=== PATIENT | male | born 1950 | race Caucasian/White ===

== ENCOUNTER → 2016-11-18 | Outpatient (CLI) | payer OTHER, MEDICARE ==
[2016-11-18 08:43] LABS: CHLORIDE,CL 104 mmol/L (98-110); SODIUM,NA 137 mmol/L (136-146)
== END ==
LOC: MW.CHIM 08:01
PROVIDERS: ATTEND Internal Medicine
DX: I10 Essential (primary) hypertension (principal); E11.9 Type 2 diabetes mellitus without complications
CPT/HCPCS: 36415; 80053; 80061; 83036; 85025

== ENCOUNTER 2016-12-13 11:54 | Emergency (ER) | payer OTHER, MEDICARE ==
--- NOTE | 2016-12-13 12:12 | EDM.PDOC ---
ED HPI Trauma - General Chief Complaint: Upper Extremity Injury/Pain Stated Complaint: LEFT HAND Time Seen by Provider: 12/13/16 12:06 - History of Present Illness INITIAL COMMENTS - FREE TEXT/NARRATIVE: HISTORY AND PHYSICAL: History of present illness: Patient is a 66-year-old male presents status post fall with an acute injury to his left hand and wrist sustaining multiple abrasions and is the main concern about tenderness and swelling over the distal aspect of his left radius Review of systems: As per history of present illness and below otherwise all systems reviewed and negative. Past medical history: As per history of present illness and as reviewed below otherwise noncontributory. Surgical history: As per history of present illness and as reviewed below otherwise noncontributory. Social history: No reported history of drug or alcohol abuse. Family history: As per history of present illness and as reviewed below otherwise noncontributory. Physical exam: HEENT: Atraumatic, normocephalic, pupils reactive, negative for conjunctival pallor or scleral icterus, mucous membranes moist, throat clear, neck supple, nontender, trachea midline. Lungs: Clear to auscultation, breath sounds equal bilaterally, chest nontender. Heart: S1S2, regular, negative for clicks, rubs, or JVD. Abdomen: Soft, nondistended, nontender. Negative for masses or hepatosplenomegaly. Negative for costovertebral tenderness. Pelvis: Stable nontender. Genitourinary: Deferred. Rectal: Deferred. Extremities: Patient has tenderness pain and swelling over the distal radius on the dorsal aspect has multiple abrasions with avulsion of his left hand neurovascular exam is unremarkable patient has approximately 1.5 cm moderate laceration volar aspect of the second digit of the left hand Neuro: Awake, alert, oriented. Cranial nerves II through XII unremarkable. Cerebellum unremarkable. Motor and sensory unremarkable throughout. Exam nonfocal. Diagnostics: X-ray left hand/wrist Therapeutics: Patient was anesthetized prepped and draped in sterile manner laceration second digit were aspect proximally 2 cm closed with 4-0 nylon interrupted suture Impression: #1 acute left hand/wrist injury with laceration Definitive disposition and diagnosis as appropriate pending reevaluation and review of above. Allergies/ADRs: Allergies weed pollen Allergy (Verified 12/13/16 12:18) Difficulty Breathing CATS Allergy (Uncoded 12/13/16 12:18) Cannot Remember KETCHUP Allergy (Uncoded 12/13/16 12:18) Cannot Remember Home Medications: Ambulatory Orders Albuterol [Ventolin HFA] 1 puff INH Q4HR 01/17/14 [Confirmed 09/15/15] Glimepiride 4 mg PO BID 01/17/14 [Confirmed 09/15/15] Insulin Glarg,Human.Rec.Analog [Lantus] 20 units SUBCUT DAILY 01/17/14 [ Confirmed 09/15/15] Valsartan [Diovan] 320 mg PO DAILY 01/17/14 [Confirmed 09/15/15] metFORMIN [Glucophage] 1,000 mg PO BID 01/17/14 [Confirmed 09/15/15] Fluticasone/Salmeterol [Advair Diskus 250-50] 1 inh INH BID 09/15/15 [Confirmed 09/15/15] Ipratropium/Albuterol Sulfate [Iprat-Albut 0.5-3(2.5) MG/3 ML] 3 ml INH Q6HR PRN 09/15/15 [Confirmed 09/15/15] amLODIPine [Norvasc] 1 tab PO DAILY 09/15/15 [Confirmed 09/15/15] Past Medical History HEENT History: Reports: None Cardiovascular History: Reports: Hypertension Respiratory History: Reports: Asthma, Bronchitis, recurrent, COPD, Pneumonia, recurrent Endocrine/Metabolic History: Reports: Diabetes, type II - Infectious Disease History Infectious Disease History: Reports: Chicken pox - Past Surgical History Head Surgeries/Procedures: Reports: None Social & Family History - Family History HEENT: Reports: None Cardiac: Reports: None - Tobacco Use Smoking Status *Q: Former Smoker - Alcohol Use Days Per Week of Alcohol Use: 0 Number of Drinks Per Day: 0 Total Drinks Per Week: 0 - Recreational Drug Use Recreational Drug Use: No Drug Use in Last 12 Months: No Review of Systems - Review of Systems Review Of Systems: ROS reveals no pertinent complaints other than HPI. Trauma Exam - Physical Exam Exam: See Below (See dictation) Course - Vital Signs Last Recorded V/S: Last Vital Signs Temp 36.5 C 12/13/16 12:18 Pulse 88 12/13/16 12:18 Resp 18 12/13/16 12:18 BP 148/80 H 03/31/17 12:18 Pulse Ox 93 L 12/13/16 12:18 - Orders/Labs/Meds Orders: Active Orders 24 hr Category Date Time Status Hand 2V Lt [CR] Stat Exams 12/13/16 12:08 Taken Wrist 2V Lt [CR] Stat Exams 12/13/16 12:08 Taken Meds: Medications Discontinued Medications Generic Name Dose Route Start Last Admin Trade Name Mehrdad PRN Reason Stop Dose Admin Lidocaine HCl 20 ml 12/13/16 12:13 Xylocaine 1% INJECT 12/13/16 12:14 ONETIME ONE Departure - Departure Time of Disposition: 12:59 Disposition: Home, Self-Care 01 Condition: good Clinical Impression: Hand injury, Laceration, Wrist injury Forms: ED Department Discharge Additional Instructions: The following information is given to patients seen in the emergency department who are being discharged to home. This information is to outline your options for follow-up care. We provide all patients seen in our emergency department with a follow-up referral. The need for follow-up, as well as the timing and circumstances, are variable depending upon the specifics of your emergency department visit. If you don't have a primary care physician on staff, we will provide you with a referral. We always advise you to contact your personal physician following an emergency department visit to inform them of the circumstance of the visit and for follow-up with them and/or the need for any referrals to a consulting specialist. The emergency department will also refer you to a specialist when appropriate. This referral assures that you have the opportunity for followup care with a specialist. All of these measure are taken in an effort to provide you with optimal care, which includes your followup. Under all circumstances we always encourage you to contact your private physician who remains a resource for coordinating your care. When calling for followup care, please make the office aware that this follow-up is from your recent emergency room visit. If for any reason you are refused follow-up, please contact the [facility] emergency department at and asked to speak to the emergency department charge nurse. Follow up primary medical doctor one to 2 days wound check in 48 hours suture removal 10-14 days return as needed as discussed - My Orders Last 24 Hours: My Active Orders 12/13/16 12:08 Hand 2V Lt [CR] Stat Wrist 2V Lt [CR] Stat - Assessment/Plan Last 24 Hours: My Active Orders 12/13/16 12:08 Hand 2V Lt [CR] Stat Wrist 2V Lt [CR] Stat
[2016-12-13] MEDS ORDERED: Lidocaine 1% 20 ML MDV INJECT ONE (12:13)
--- NOTE | 2016-12-13 13:02 | CR ---
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 Subchondral cystic changes noted within several carpal bones. Mo derate osteophytic changes are noted at diffuse CMC joint. Periarticular calcific densities are also noted. No fracture or acute osseous abnormality is present. Mild osteophytic changes are also noted within the interphalangeal joints. Bone mineralization otherwise appears normal. IMPRESSION: 1. Advanced arthritic changes noted within the wrist and first CMC joint. 2. Mild osteophytic changes noted within the interphalangeal joints. 3. No acute osseous abdomen identified.
[2016-12-13] MEDS ORDERED: Diphtheria/Tetanus Toxoids,Adult (Td) 0.5 ML Syringe IM ONE (13:11)
[2016-12-13] MEDS ORDERED: Bacitracin Oint 1 GM U/D Packet TOP ONE (13:12)
[2016-12-13 13:24] VITALS: BP 146/78
== END 2016-12-13 13:22 | disposition home or self-care (01) ==
LOC: MW.ED 11:54
DX: S61.211A Laceration without foreign body of left index finger without damage to nail, initial encounter (principal); S69.92XA Unspecified injury of left wrist, hand and finger(s), initial encounter; I10 Essential (primary) hypertension; J45.909 Unspecified asthma, uncomplicated; J44.9 Chronic obstructive pulmonary disease, unspecified; Z87.891 Personal history of nicotine dependence; Z79.4 Long term (current) use of insulin; Z79.899 Other long term (current) drug therapy; Z91.048 Other nonmedicinal substance allergy status; W19.XXXA Unspecified fall, initial encounter
CPT/HCPCS: 12001; 73100; 73120; 99283; L3908; 99282

== ENCOUNTER 2016-12-18 09:53 | Emergency (ER) | payer OTHER, MEDICARE ==
--- NOTE | 2016-12-18 10:45 | CR ---
EXAMINATION: Left hand and left wrist HISTORY: Pain COMPARISON: 12/13/2016 TECHNIQUE: 2 views of the left hand and 2 views of the left wrist FINDINGS: There is no acute osseous abnormality, dislocation, or fracture identified. Bone mineraliz ation appears grossly normal. Joint space narrowing is noted at the lunocapitate articulation. Cysti c changes noted within the scaphoid. Moderate first CMC osteoarthritic changes are noted. Joint spac e narrowing is noted within multiple interphalangeal joints. Periarticular calcifications are noted adjacent to the wrist. The radiocarpal alignment is preserved. There is moderate soft tissue swellin g overlying the wrist and hand. IMPRESSION: 1. No acute osseous abnormality identified. 2. Advanced degenerative changes noted within the wrist. With the adjacent calcific densities, gout is a consideration. 3. Osteoarthritic changes noted within the interphalangeal joints.
--- NOTE | 2016-12-18 10:54 | EDM.PDOC ---
ED HPI Trauma - General Chief Complaint: Upper Extremity Injury/Pain Stated Complaint: LT HAND SWOLLEN Time Seen by Provider: 12/18/16 10:00 Source: Reports: Patient History Limitations: Reports: No limitations - History of Present Illness INITIAL COMMENTS - FREE TEXT/NARRATIVE: HISTORY AND PHYSICAL: History of present illness: [Patient comes to the emergency room complaining of left wrist and hand pain. He was evaluated here for these complaints on December 13 following a fall. X-rays at that time were negative for fracture. Patient presents today with continued pain, swelling, redness. he requests a repeat x-ray since his symptoms have not improved. No numbness or tingling. Decreased range of motion due to swelling in left hand.] Review of systems: As per history of present illness and below otherwise all systems reviewed and negative. Past medical history: As per history of present illness and as reviewed below otherwise noncontributory. Surgical history: As per history of present illness and as reviewed below otherwise noncontributory. Social history: No reported history of drug or alcohol abuse. Family history: As per history of present illness and as reviewed below otherwise noncontributory. Physical exam: HEENT: Atraumatic, normocephalic. Lungs: Clear to auscultation, breath sounds equal bilaterally. Heart: S1S2, regular, negative for clicks, rubs. Extremities: Left hand and wrist are acutely swollen. Redness and tenderness over left distal radius. Palm of left hand is ecchymotic. Neurovascular unremarkable. Has full range of motion of his fingers. Increased range of motion to his left wrist due to discomfort. Neuro: Awake, alert, oriented. Cranial nerves II through XII unremarkable. Cerebellum unremarkable. Motor and sensory unremarkable throughout. Exam nonfocal. Diagnostics: [Left wrist x-ray, left hand x-ray, CBC, uric acid] Impression: [Left wrist pain] Plan: [CBC and uric acid levels are within normal limits. X-rays continue to show no fractures. does not appear cellulitic in nature. He is prescribed diclofenac 50 mg to take 3 times daily with food. Tylenol every 4-6 hours as needed. Wear a splint. Followup with Dr. Sparks in 48 hours. Instructed patient to call to schedule appointment today. All of his questions are answered and concerns are addressed.] Definitive disposition and diagnosis as appropriate pending reevaluation and review of above. Allergies/ADRs: Allergies weed pollen Allergy (Verified 12/18/16 10:03) Difficulty Breathing CATS Allergy (Uncoded 12/13/16 12:18) Cannot Remember KETCHUP Allergy (Uncoded 12/13/16 12:18) Cannot Remember Home Medications: Ambulatory Orders Albuterol [Ventolin HFA] 1 puff INH Q4HR 01/17/14 [Confirmed 12/18/16] Glimepiride 4 mg PO BID 01/17/14 [Confirmed 12/18/16] Insulin Glarg,Human.Rec.Analog [Lantus] 20 units SUBCUT DAILY 01/17/14 [ Confirmed 12/18/16] Valsartan [Diovan] 320 mg PO DAILY 01/17/14 [Confirmed 12/18/16] metFORMIN [Glucophage] 1,000 mg PO BID 01/17/14 [Confirmed 12/18/16] Fluticasone/Salmeterol [Advair Diskus 250-50] 1 inh INH BID 09/15/15 [Confirmed 12/18/16] Ipratropium/Albuterol Sulfate [Iprat-Albut 0.5-3(2.5) MG/3 ML] 3 ml INH Q6HR PRN 09/15/15 [Confirmed 12/18/16] amLODIPine [Norvasc] 1 tab PO DAILY 09/15/15 [Confirmed 12/18/16] Past Medical History HEENT History: Reports: None Cardiovascular History: Reports: Hypertension Respiratory History: Reports: Asthma, Bronchitis, recurrent, COPD, Pneumonia, recurrent Endocrine/Metabolic History: Reports: Diabetes, type II - Infectious Disease History Infectious Disease History: Reports: Chicken pox, Measles, Mumps - Past Surgical History Head Surgeries/Procedures: Reports: None Social & Family History - Family History Family Medical History: Noncontributory HEENT: Reports: None Cardiac: Reports: None - Tobacco Use Smoking Status *Q: Never Smoker - Caffeine Use Caffeine Use: Reports: None - Alcohol Use Days Per Week of Alcohol Use: 0 Number of Drinks Per Day: 0 Total Drinks Per Week: 0 - Recreational Drug Use Recreational Drug Use: No Drug Use in Last 12 Months: No Review of Systems - Review of Systems Review Of Systems: ROS reveals no pertinent complaints other than HPI. Trauma Exam - Physical Exam Exam: See Below Course - Vital Signs Last Recorded V/S: Last Vital Signs Temp 98.3 F 12/18/16 10:01 Pulse 74 12/18/16 12:06 Resp 16 12/18/16 12:06 BP 132/78 12/18/16 12:06 Pulse Ox 93 L 12/18/16 12:06 - Orders/Labs/Meds Labs: Laboratory Tests 12/18/16 12/18/16 Range/Units 11:00 11:00 WBC 6.84 (4.0-11.0) K/uL RBC 5.20 (4.50-5.90) M/uL Hgb 15.5 (13.0-17.0) g/dL Hct 45.5 (38.0-50.0) % MCV 87.5 (80.0-98.0) fL MCH 29.8 (27.0-32.0) pg MCHC 34.1 (31.0-37.0) g/dL RDW Std Deviation 41.9 (28.0-62.0) fl RDW Coeff of Ever 13 (11.0-15.0) % Plt Count 248 (150-400) K/uL MPV 8.30 (7.40-12.00) fL Neut % (Auto) 63.7 (48.0-80.0) % Lymph % (Auto) 22.1 (16.0-40.0) % [place] % (Auto) 10.8 (0.0-15.0) % Eos % (Auto) 3.1 (0.0-7.0) % Baso % (Auto) 0.3 (0.0-1.5) % Neut # (Auto) 4.4 (1.4-5.7) K/uL Lymph # (Auto) 1.5 (0.6-2.4) K/uL [place] # (Auto) 0.7 (0.0-0.8) K/uL Eos # (Auto) 0.2 (0.0-0.7) K/uL Baso # (Auto) 0.0 (0.0-0.1) K/uL Sodium 136 (136-146) mmol/L Potassium 4.2 (3.5-5.1) mmol/L Chloride 104 (98-110) mmol/L Carbon Dioxide 21 (21-31) mmol/L BUN 21 (6.0-23.0) mg/dL Creatinine 1.0 (0.6-1.5) mg/dL Est Cr Clr Drug Dosing 67.94 mL/min Estimated GFR (MDRD) > 60.0 ml/min Glucose 135 H (60-110) mg/dL Uric Acid 4.3 (2.1-7.4) mg/dL Calcium 9.2 (8.8-10.8) mg/dL Total Bilirubin 0.5 (0.1-1.5) mg/dL AST 16 (5-40) IU/L ALT 17 (8-54) IU/L Alkaline Phosphatase 56 (40-150) Total Protein 7.5 (6.0-8.0) g/dL Albumin 3.7 (3.4-4.8) g/dL Globulin 3.8 H (2.0-3.5) g/dL Albumin/Globulin Ratio 1.0 L (1.3-2.8) Departure - Departure Time of Disposition: 11:55 Disposition: Home, Self-Care 01 Clinical Impression: Wrist pain, left Instructions: Wrist Pain, [id number] Referrals: Brian Sparks DO [Primary Care Provider] - Forms: ED Department Discharge Additional Instructions: The following information is given to patients seen in the emergency department who are being discharged to home. This information is to outline your options for follow-up care. We provide all patients seen in our emergency department with a follow-up referral. The need for follow-up, as well as the timing and circumstances, are variable depending upon the specifics of your emergency department visit. If you don't have a primary care physician on staff, we will provide you with a referral. We always advise you to contact your personal physician following an emergency department visit to inform them of the circumstance of the visit and for follow-up with them and/or the need for any referrals to a consulting specialist. The emergency department will also refer you to a specialist when appropriate. This referral assures that you have the opportunity for follow-up care with a specialist. All of these measure are taken in an effort to provide you with optimal care, which includes your follow-up. Under all circumstances we always encourage you to contact your private physician who remains a resource for coordinating your care. When calling for follow-up care, please make the office aware that this follow-up is from your recent emergency room visit. If for any reason you are refused follow-up, please contact the [facility] emergency department at and asked to speak to the emergency department charge nurse. [facility] [address] [place] [id number] Followup with your primary care provider at the clinic listed above in 48-72 hours. Wear wrist splint. Take diclofenac as prescribed. May take Tylenol every 4-6 hours as needed for pain. Return to ER as needed as discussed.
[2016-12-18 11:48] LABS: CHLORIDE,CL 104 mmol/L (98-110); SODIUM,NA 136 mmol/L (136-146)
[2016-12-18 12:09] VITALS: BP 132/78
== END 2016-12-18 12:08 | disposition home or self-care (01) ==
LOC: MW.ED 09:53
DX: M25.532 Pain in left wrist (principal); I10 Essential (primary) hypertension; J45.909 Unspecified asthma, uncomplicated; J44.9 Chronic obstructive pulmonary disease, unspecified; E11.9 Type 2 diabetes mellitus without complications; Z79.4 Long term (current) use of insulin; Z79.899 Other long term (current) drug therapy; Z91.018 Allergy to other foods; Z91.048 Other nonmedicinal substance allergy status
CPT/HCPCS: 36415; 73100-26-LT; 73100-LT; 73120-26-LT; 73120-LT; 80053; 84550; 85025; 99283

== ENCOUNTER 2018-03-25 12:15 | Emergency (ER) | payer MEDICARE, OTHER ==
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
[2018-03-25] MEDS ORDERED: Bacitracin Oint 1 GM U/D Packet TOP ONE (12:53)
[2018-03-25 13:23] VITALS: BP 119/81
== END 2018-03-25 13:20 | disposition home or self-care (01) ==
LOC: MW.ED 12:15
DX: T24.201A Burn of second degree of unspecified site of right lower limb, except ankle and foot, initial encounter (principal); T24.111A Burn of first degree of right thigh, initial encounter; L03.115 Cellulitis of right lower limb; I10 Essential (primary) hypertension; E11.9 Type 2 diabetes mellitus without complications; J44.9 Chronic obstructive pulmonary disease, unspecified; Z79.4 Long term (current) use of insulin; Z79.899 Other long term (current) drug therapy; Z91.09 Other allergy status, other than to drugs and biological substances; Z91.018 Allergy to other foods
CPT/HCPCS: 99283

== ENCOUNTER 2023-04-24 12:33 | Emergency (ER) | payer BC, MEDICARE ==
[2023-04-24] MEDS ORDERED: Acetaminophen 325 MG Tab PO ONE (13:15)
[2023-04-24 15:18] VITALS: BP 135/78; PULSE 78
== END 2023-04-24 15:20 | disposition home or self-care (01) ==
LOC: MW.ED 12:33
DX: S49.91XA Unspecified injury of right shoulder and upper arm, initial encounter (principal); E11.9 Type 2 diabetes mellitus without complications; J44.9 Chronic obstructive pulmonary disease, unspecified; I10 Essential (primary) hypertension; Z91.018 Allergy to other foods; Z79.4 Long term (current) use of insulin; Z91.048 Other nonmedicinal substance allergy status; Z79.899 Other long term (current) drug therapy; Z79.84 Long term (current) use of oral hypoglycemic drugs; W01.198A Fall on same level from slipping, tripping and stumbling with subsequent striking against other object, initial encounter
CPT/HCPCS: 73060; 76881; 99283; A9270